=== PATIENT | male | born 1945 | race African-American/Black ===

== ENCOUNTER 2017-04-23 05:56 | Inpatient (IN) ==
--- NOTE | 2017-04-16 10:49 | EKG Report ---
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
[2017-04-23] MEDS ORDERED: SODIUM PHOSPHATE ENEMA 133 ML BOTTLE RECTAL ONE ×2 (06:00→06:05)
[2017-04-23] MEDS ORDERED: cefTRIAXone 1,000 MG in SODIUM CHLORIDE 0.9% 100 ML IV ONE (06:00)
[2017-04-23] MEDS ORDERED: ALVIMOPAN 12 MG CAPSULE PO ONE (06:00)
[2017-04-23] MEDS ORDERED: ALVIMOPAN 12 MG CAPSULE ONE (06:04)
[2017-04-23] MEDS ORDERED: SODIUM CHLORIDE 0.9% 100 ML IV ONE (06:05)
[2017-04-23] MEDS ORDERED: cefTRIAXone 1,000 MG VIAL ONE (06:05)
[2017-04-23] MEDS ORDERED: FAMOTIDINE 20 MG/2 ML VIAL IV ONE (06:46)
[2017-04-23 06:52] LABS: Calcium 8.8 MG/DL (8.5-10.1); Osmolality,Calculated 292.7 MOS/KG (273-304); Potassium 4.5 MMOL/L (3.5-5.1)
[2017-04-23] MEDS: LACTATED RINGERS 1,000 ML IV SCH (06:59)
[2017-04-23] MEDS ORDERED: DEXAMETHASONE 4 MG/1 ML VIAL ONE (07:10)
[2017-04-23] MEDS: SODIUM CHLORIDE 0.9% 1,000 ML IV SCH ×2 (07:10→10:01)
[2017-04-23] MEDS ORDERED: GLYCOPYRROLATE 0.4 MG/2 ML VIAL ONE (07:10)
[2017-04-23] MEDS ORDERED: PROPOFOL 200 MG/20 ML VIAL IV ONE (07:10)
[2017-04-23] MEDS ORDERED: ONDANSETRON 4 MG/2 ML VIAL ONE ×2 (07:10→12:30)
[2017-04-23] MEDS ORDERED: NEOSTIGMINE 10 MG/10 ML VIAL ONE (07:10)
[2017-04-23] MEDS ORDERED: ROCURONIUM 100 MG/10 ML VIAL IV ONE (07:10)
[2017-04-23] MEDS ORDERED: LIDOCAINE 2% 5 ML VIAL ONE (07:10)
[2017-04-23 08:40] LABS: Apearance,Urine CLEAR (Clear); Bilirubin,Urine Negative (Negative); Blood, Urine Moderate mg/dL (Negative); Glucose,Urine (UA) Negative (Negative); Ketones,Urine Negative (Negative); Mucus,Urine Occasional /LPF (Occasional); Nitrite,Urine Negative (Negative); Protein,Urine Negative; RBC,Urine 8 /HPF (0-4); Sperm,Urine Occasional /HPF (Negative); Urine Color Straw (Yellow); Urine Specific Gravity 1.009 (1.001-1.035); Urine Urobilinogen < 2.0 EU/DL (0.2-1.0); WBC,Urine 2 /HPF (0-6)
[2017-04-23] MEDS ORDERED: LACTULOSE 20 GM/30 ML UDCUP PO PRN (11:57)
[2017-04-23] MEDS ORDERED: ONDANSETRON 4 MG/2 ML VIAL IV PRN ×2 (11:57→12:36)
[2017-04-23] MEDS ORDERED: diphenhydrAMINE 50 MG/1 ML VIAL IV PRN (11:57)
[2017-04-23] MEDS ORDERED: HYDROmorphone PCA 30 MG/30 ML SYRINGE IV SCH (12:00)
--- NOTE | 2017-04-23 12:10 | Operative Note ---
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 Procedure was explained at length and in detail. Risks, complications, outcomes, sequelae, prognosis and alternative therapy was discussed. Patient understood this and agreed to proceed. Patient brought to the operative suite placed table on in the supine position on the securing pad. He is then given a general endotracheal anesthetic and then secured to the table and placed in low lithotomy position. He is then prepared and draped in usual sterile manner. Formal timeout was performed. Patient placed in Trendelenburg position. Incision is created over the umbilicus and this was then bluntly dissected down the fascia. Towel clips were used to elevate the abdominal wall and a Veress needle was used to castellon the abdominal wall and pneumoperitoneum was obtained. Placement was confirmed with the to click and saline drop test. Various needle was removed an 8 mm trocar was placed. Camera was inserted in this. There was some blood splattering on the mesentery and was not sure whether it is from I was fairly certain the Veress needle had not pierced the mesentery. Another port was placed lateral to the camera port at the umbilicus on the left-hand side and the camera was inserted and there is a lot of adipose tissue in the anterior abdominal wall that had some serum the drip down along with low blood. I think that is where this came from. A grasping forcep was placed in the bowel was manipulated and there is no bowel injury. The #3 arm right of the camera in the fourth arm right to #3 were then placed. These are done under direct vision. Assistance port incision was created with the scalpel and dissected down and cautery. Muscle was divided in the mini gel port was placed. 12 mm trocar was placed through this. The robot was then docked. I broke scrub and went to the console. [place] bipolar forceps in the left and monopolar scissors in the right posterior approach was begun. There was a lot of pelvic adipose tissue. This made the dissection difficult because there was a very small cul-de-sac and a lot of adipose tissue. But incision was created anterior cul-de-sac and dissection down the vas deferens seminal vesicles. The vas deferens were then divided and clipped and the seminal vesicles were dissected out of their bed. Window in Denonvilliers's fascia was created. The wrist bladder flap was then created in usual manner. We attempted nerve sparing but due the amount of scarring from a previous TUR this was not done. Prostate was ultimately dissected out in the knuckles were hemoclipped and the prostate was then removed. No dissection was done on both sides. The obturator nerve was identified kept in view at all times not injured. Urethrovesical anastomosis performed the usual manner. A new 22 Maced[place] Rodas was inserted and irrigated and this is a watertight anastomosis. Pneumoperitoneum was dropped there is no significant bleeding. I re-scrubbed and came back to the surgical field. The ports were removed and the main port was removed. Specimen which contain the prostate and seminal vesicles and the specimen bag was then pulled out through this wound. This was closed at the fascia level with a running 0 Monocryl. All wounds were irrigated and hemostasis checked with cautery and the skin was closed skin clips. Sterile dressings were placed on the wound and the catheter secured the upper thigh. Patient tolerates procedure well was sent to the recovery room in stable condition all sponge, needle and instrument counts correct 2. Implants: 22 Macedonian silicone Rodas Anesthesia: GETA Surgeon / Physician: Naman Raymond Estimated blood loss: other (350cc) Specimens: other (Prostate with seminal vesicles, bilateral obturator nodes) Condition: stable Disposition: PACU Results - Labs CBC & BMP: 04/23/17 06:12 Discharge Plan - Discharge Medications No Action Atorvastatin [Lipitor] 20 mg PO DAILY Allopurinol 100 mg PO DAILY Tamsulosin [Flomax] 0.4 mg PO DAILY Sodium Bicarb Tab 650 mg PO DAILY amLODIPine [Norvasc] 10 mg PO DAILY Lisinopril 40 mg PO DAILY Rotigotine [Neupro 4 mg/24 hr Patch] 1 patch Q24H Warfarin [Coumadin] 6 mg PO DAILY@1800 Omeprazole [Prilosec] 20 mg PO DAILY - Follow Up or Referral - Forms/Instructions
[2017-04-23] MEDS ORDERED: SODIUM CHLORIDE 0.9% 2,000 ML IV ONE (12:21)
[2017-04-23] MEDS ORDERED: MIDAZOLAM 2 MG/2 ML VIAL ONE (12:21)
[2017-04-23] MEDS ORDERED: SEVOFLURANE 1 UNIT/15 MINUTE INH ONE (12:21)
[2017-04-23] MEDS ORDERED: fentaNYL 100 MCG/2 ML VIAL ONE (12:21)
[2017-04-23] MEDS ORDERED: ACETAMINOPHEN 1,000 MG/100 ML VIAL IV ONE (12:23)
[2017-04-23] MEDS ORDERED: HYDROmorphone 2 MG/1 ML VIAL ONE (12:30)
[2017-04-23] MEDS ORDERED: LISINOPRIL 20 MG TABLET PO SCH (12:30)
[2017-04-23] MEDS: HYDROmorphone 2 MG/1 ML VIAL IV PRN ×4 (12:35→12:50)
[2017-04-23] MEDS ORDERED: HYDROmorphone PCA 30 MG/30 ML SYRINGE IV ONE (12:41)
[2017-04-23] MEDS: DEXTROSE 5% NACL 0.45% 1,000 ML IV SCH (15:10)
--- NOTE | 2017-04-23 16:25 | Urology Progress Note ---
Urology - PN: Subj Interval history: Postoperative check. Patient is awake and alert but a little sleepy. Urine is slightly bloody not uncommon. Abdomen is soft with incisional tenderness. Vital signs are stable. Patient is stable. Exam - Constitutional Vitals: Period Temp Pulse Resp BP Sys/Mulligan Pulse Ox Last 24 Hr 97.2 F-98.3 F 69-111 16-24 94-181/69-116 96-100 Results - Labs CBC & BMP: 04/23/17 06:12
[2017-04-23] MEDS: SOLIFENACIN 5 MG TABLET PO SCH (17:52)
[2017-04-23] MEDS: ALBUTEROL/IPRATROPIUM 3 ML NEB RESP TX SCH ×2 (19:20→23:42)
[2017-04-23] MEDS: ALVIMOPAN 12 MG CAPSULE PO SCH (20:52)
[2017-04-23] MEDS ORDERED: NEUPRO TRANSDERM SCH (21:00)
[2017-04-24] MEDS: DEXTROSE 5% NACL 0.45% 1,000 ML IV SCH ×3 (01:18→20:11)
[2017-04-24] MEDS: ALBUTEROL/IPRATROPIUM 3 ML NEB RESP TX SCH ×6 (02:55→23:41)
[2017-04-24] MEDS: LACTATED RINGERS 1,000 ML IV SCH (06:04)
[2017-04-24 06:26] LABS: Basophils % 0.1 % (0.0-0.8); Hematocrit 34.5 VOL% (42.0-52.0); Hemoglobin 11.4 GM/DL (14.0-18.0); Immature Granulocytes % 0.5 %; Immature Granulocytes Absolute 0.05 #; Lymphocytes # 1.1 10*3/uL (1.4-4.0); Lymphocytes % 10.3 % (21.2-54.2); Mean Corpuscular Hemoglobin 31 PG (27-34); Mean Corpuscular Volume 93.2 FL (87-102); Mean Platelet Volume 10.3 FL (9.6-12.0); Monocytes # 0.8 10*3/uL (0.11-0.8); Neutrophils # 8.5 10*3/uL (1.4-7.4); Neutrophils % 81.1 % (38.7-73.9); Platelet Count 134 T/CUMM (130-400); Red Cell Distribution Width 14.5 % (9.3-17.3); White Blood Count 10.4 T/CUMM (4-12)
[2017-04-24 07:00] LABS: Calcium 7.6 MG/DL (8.5-10.1); Osmolality,Calculated 292.8 MOS/KG (273-304); Potassium 4.8 MMOL/L (3.5-5.1)
--- NOTE | 2017-04-24 07:10 | Anesthesia Post-Op ---
Anesthesia Post OP - Post Ansesthetic Evaluation Patient seen in post op: Yes Resp: within normal limits CV: within normal limits Mental: within normal limits Temp: within normal limits Drfe-Rt-Cjayaukgn: within normal limits Nausea and Vomiting: within normal limits Pain: within normal limits
--- NOTE | 2017-04-24 08:25 | Pulmonology Progress Note ---
Pulmonary - PN: Subj Interval history: The patient is a 71-year-old black man that has prostate cancer. He came in for radical prostatectomy. He has a history of hypertension and previous pulmonary emboli. He had been on Coumadin. He has been doing well without any shortness of breath or chest pain. Yesterday afternoon he came out of surgery and was doing fairly well. He was very sleepy and dropped his O2 saturation easily but this responded to oxygen. He denies any chest pain or shortness of breath. He says he is sore today but otherwise doing okay. He did sit up a little yesterday and is taking in some liquids. Overall he is feeling well. Exam (Progress Note) - Constitutional Vitals: Period Temp Pulse Resp BP Sys/Mulligan Pulse Ox Last 24 Hr 97.2 F-98.0 F 57-111 16-24 94-181/68-116 95-100 General appearance: normal weight, no acute distress - Head Head exam: Present: normal inspection, normocephalic - Eye Eye exam: Present: EOMI. Absent: scleral icterus Pupils: Present: SUNG - ENT ENT exam: Present: normal exam - Neck Neck exam: Present: normal inspection. Absent: lymphadenopathy, thyromegaly - Respiratory Respiratory exam: Present: clear to auscultation bilaterally - Cardiovascular Cardiovascular exam: Present: regular rate and rhythm. Absent: gallop, systolic murmur - GI/Abdominal GI/Abdominal exam: Present: hypoactive bowel sounds, tenderness (He has minimal tenderness in the lower abdomen.), soft. Absent: distended - Extremities Exam Extremities exam: Absent: calf tenderness, edema - Neurological Exam Neurological exam: Present: alert, oriented X3, CN II-XII intact. Absent: motor sensory deficit - Psychiatric Psychiatric exam: Present: normal affect - Skin Skin exam: Present: warm, dry Results - Labs CBC & BMP: 04/24/17 05:58 04/24/17 05:58 Assessment and Plan (1) Prostate cancer Status: Acute Assessment and plan: The patient has prostate cancer and comes in for radical prostatectomy. He is doing reasonably well at present. Current Visit: Yes (2) Status post prostatectomy Status: Acute Assessment and plan: He is a little sore today after surgery but is doing well otherwise. Current Visit: Yes (3) Chronic renal insufficiency, stage III (moderate) Status: Acute Assessment and plan: His creatinine is 3.8. Current Visit: Yes (4) Hypertension Status: Acute Assessment and plan: His blood pressure stable at present. Current Visit: Yes (5) History of pulmonary embolism Status: Acute Assessment and plan: The patient has been on Coumadin for pulmonary emboli. He is stable at present and will continue with mechanical devices for DVT prophylaxis. He will start his Coumadin when he is over the surgery. Current Visit: Yes (6) Intention tremor Status: Acute Assessment and plan: The patient does have a significant tremor with his hands. Current Visit: Yes
[2017-04-24] MEDS ORDERED: MEPERIDINE 50 MG/1 ML VIAL IM PRN (08:58)
--- NOTE | 2017-04-24 09:00 | Urology Progress Note ---
Urology - PN: Subj Interval history: Postop day 1 radical prostatectomy. Patient's urine is cleared up. He is tolerating some light food. Abdomen is soft but incisional tender this is still evident. His blood work reveals an H&H that is 12 and 35. Creatinine is 3.8 which is stable from preop. He does have chronic renal insufficiency. It is still a little too early to start Coumadin. He needs to get up and ambulate twice a day. We will continue the SCDs. We will stop his PHARM[facility] SPECIALIST and place him on oral medicines. Pathology report is pending. Exam - Constitutional Vitals: Period Temp Pulse Resp BP Sys/Mulligan Pulse Ox Last 24 Hr 97.2 F-98.0 F 57-111 16-24 94-181/68-116 20-100 Results - Labs CBC & BMP: 04/24/17 05:58 04/24/17 05:58
[2017-04-24] MEDS ORDERED: oxyCODONE/ACETAMINOPHEN 5-325 MG TABLET PO PRN (09:01)
[2017-04-24] MEDS: SOLIFENACIN 5 MG TABLET PO SCH (09:17)
[2017-04-24] MEDS: PANTOPRAZOLE 40 MG TABLET PO SCH (09:18)
[2017-04-24] MEDS: ALLOPURINOL 100 MG TABLET PO SCH (09:18)
[2017-04-24] MEDS: amLODIPine 10 MG TABLET PO SCH (09:18)
[2017-04-24] MEDS: LISINOPRIL 20 MG TABLET PO SCH (09:18)
[2017-04-24] MEDS: ALVIMOPAN 12 MG CAPSULE PO SCH ×2 (09:18→20:09)
[2017-04-24] MEDS: SODIUM BICARBONATE 650 MG TABLET PO SCH (09:19)
[2017-04-24] MEDS: ATORVASTATIN 40 MG TABLET PO SCH (09:19)
[2017-04-24] MEDS: oxyCODONE/ACETAMINOPHEN 5-325 MG TABLET PO PRN ×2 (14:26→22:14)
[2017-04-25] MEDS: ALBUTEROL/IPRATROPIUM 3 ML NEB RESP TX SCH ×4 (03:09→14:21)
[2017-04-25] MEDS: DEXTROSE 5% NACL 0.45% 1,000 ML IV SCH (03:24)
[2017-04-25] MEDS: LACTATED RINGERS 1,000 ML IV SCH (06:05)
[2017-04-25] MEDS: ATORVASTATIN 40 MG TABLET PO SCH (09:08)
[2017-04-25] MEDS: ALVIMOPAN 12 MG CAPSULE PO SCH (09:08)
[2017-04-25] MEDS: amLODIPine 10 MG TABLET PO SCH (09:09)
[2017-04-25] MEDS: PANTOPRAZOLE 40 MG TABLET PO SCH (09:09)
[2017-04-25] MEDS: LISINOPRIL 20 MG TABLET PO SCH (09:09)
[2017-04-25] MEDS: SOLIFENACIN 5 MG TABLET PO SCH (09:09)
[2017-04-25] MEDS: ALLOPURINOL 100 MG TABLET PO SCH (09:09)
[2017-04-25] MEDS: SODIUM BICARBONATE 650 MG TABLET PO SCH (09:09)
--- NOTE | 2017-04-25 09:15 | Pulmonology Progress Note ---
Pulmonary - PN: Subj Interval history: The patient is a 71-year-old black man that has prostate cancer. He came in for radical prostatectomy. He has a history of hypertension and previous pulmonary emboli. He had been on Coumadin. He has been doing well without any shortness of breath or chest pain. He is sitting up and moving around now and says that he feels better. He still has some abdominal soreness and no bowel movement yet. His urine is clearing nicely. He is not having any trouble breathing. He does have a severe tremor. Exam (Progress Note) - Constitutional Vitals: Period Temp Pulse Resp BP Sys/Mulligan Pulse Ox Last 24 Hr 97.7 F-99.6 F 68-87 18-20 107-146/72-92 93-99 Exam: General appearance: normal weight, no acute distress, he is sitting up and looks comfortable. - Head Head exam: Present: normal inspection, normocephalic - Eye Eye exam: Present: EOMI. Absent: scleral icterus Pupils: Present: SUNG - ENT ENT exam: Present: normal exam - Neck Neck exam: Present: normal inspection. Absent: lymphadenopathy, thyromegaly - Respiratory Respiratory exam: Present: clear to auscultation bilaterally. He has good breath sounds bilaterally. - Cardiovascular Cardiovascular exam: Present: regular rate and rhythm. Absent: gallop, systolic murmur - GI/Abdominal GI/Abdominal exam: Present: hypoactive bowel sounds, tenderness (He has minimal tenderness in the lower abdomen.), soft. Absent: distended - Extremities Exam Extremities exam: Absent: calf tenderness, edema - Neurological Exam Neurological exam: Present: alert, oriented X3, CN II-XII intact. Absent: motor sensory deficit. He does have a severe tremor. - Psychiatric Psychiatric exam: Present: normal affect - Skin Skin exam: Present: warm, dry Results - Labs CBC & BMP: 04/24/17 05:58 04/24/17 05:58 Assessment and Plan (1) Prostate cancer Status: Acute Assessment and plan: The patient has prostate cancer and comes in for radical prostatectomy. He is stable postop. Current Visit: Yes (2) Status post prostatectomy Status: Acute Assessment and plan: He is a little sore today after surgery but is doing well otherwise. He has not had a bowel movement yet but he is taking some laxatives. His urine is clearing fairly well. Current Visit: Yes (3) Chronic renal insufficiency, stage III (moderate) Status: Acute Assessment and plan: His creatinine is 3.8. Current Visit: Yes (4) Hypertension Status: Acute Assessment and plan: His blood pressure stable at present. Current Visit: Yes (5) History of pulmonary embolism Status: Acute Assessment and plan: The patient has been on Coumadin for pulmonary emboli. He is stable at present and will continue with mechanical devices for DVT prophylaxis. He will start his Coumadin when he is over the surgery. Current Visit: Yes (6) Intention tremor Status: Acute Assessment and plan: The patient does have a significant tremor with his hands. Current Visit: Yes
--- NOTE | 2017-04-25 11:28 | Pathology Report from [facility] ---
[facility] [place] ACCESSION # : [id number] PATIENT NAME : Siddharth Shore ORDERING DR : SEBAS BERMUDEZ MD CLINICAL HX: Prostate CA POST-OP DX: Same SPECIMEN INFO: #1 RT obturator node #2 LT obturator node #3 Prostate GROSS DESCRIPTION: Received fresh in three parts labeled:#1 SIDDHARTH SHORE & R OBT NODE consists of two yellow lópez fatty tissue fragments measuring collectively 3.5 x 1.5 cm, sectioned and submitted in cassette #1.#2 SIDDHARTH SHORE & L OBT NODE is a yellow fatty firm tissue fragment measuring 1.4 x 1.1 cm, sectioned and submitted in cassette #2.#3 SIDDHARTH SHORE & #3 PROSTATE is a 61 gm prostate with seminal vesicle and vas deferens. The prostate measures approx. 5.5 x 6.2 x up to 4.5 cm. The serosa is red lópez and shaggy. There is a focally nodular appearance on the right side. The right half is inked black and the left half blue. The cut surfaces are pink lópez and focally nodular with a few cystic areas present. Sections submitted 3A-Apical margin, 3B-Base margin, 3C-Seminal vesicle and vas deferens margin, 3D-3J-RT prostate apex to base, 3K-3N-LT prostate apex to base. DIAGNOSIS FOR SIDDHARTH SHORE: PROSTATE, RADICAL PROSTATECTOMY (5.5 x 6.2 x 4.5 cm, 61gm): TYPE: Acinar adenocarcinoma. SITE: Bilateral (both lobes). GRADE: Primary Pattern Grade 3; Secondary Pattern Grade 4; Total Trego Score 7. MINI GRADE GROUP: 2(3+4=7) PERCENTAGE OF PATTERN 4 in MINI SCORE 3+4=7 CANCER: (15%) TUMOR QUANTITATION: Percentage of prostate involved by tumor 25; Dominant nodule = 10 mm. MARGINS: Margins uninvolved by invasive carcinoma EXTRAPROSTATIC EXTENSION: Not Identified SEMINAL VESICLE INVASION: Not identified URINARY BLADDER NECK INVASION: Not identified TREATMENT EFFECT: No known presurgical therapy. LYMPH-VASCULAR INVASION: Not identified. PERINEURAL INVASION: Present. LYMPH NODES: Number examined = 2; Number involved = 0. AJCC PATHOLOGIC STAGE: IIB ([id number]) COLLECTED DATE: 04/23/2017 [facility] REPORT DATE: 04/25/2017 ELECTRONICALLY SIGNED BY: Aguilar Woodward III, M.D. 04/25/2017 - 8:38:18 MTDUrszula
--- NOTE | 2017-04-25 12:30 | Discharge Summary ---
Hospital Course - Hospital Course Hospital Course: Status post robotic prostatectomy. Path is pending. He is doing well. His blood work is all look good urine is cleared up he is yet to have a bowel movement but we can continue list cathartics at home. His abdomen is soft. His wounds are healing well. We will discharge him to follow-up in the office in 1 week to have his catheter out and see me the following week. Activity level is minimal. Continues home medicines. We will restart his Coumadin on . Dr. Hernandez was consulted and was managing his medical issues. - Time spent with patient Time with patient DS: Greater than 30 minutes Discharge Plan - Discharge Data Disposition: Disch To Home/Self Care Condition at Discharge: Stable Discharge Diet: regular diet Activity: no lifting, other (Walking on flat ground is encouraged) Hygiene: no restrictions Weight Bearing at Discharge: full weight bearing Driving: not until seen by doctor Contact your physician if you experience:: fever over 101, Redness or swelling, Bleeding, pain uncontrolled by pain medications - Discharge Medications No Action Atorvastatin [Lipitor] 20 mg PO DAILY Allopurinol 100 mg PO DAILY Tamsulosin [Flomax] 0.4 mg PO DAILY Sodium Bicarb Tab 650 mg PO DAILY amLODIPine [Norvasc] 10 mg PO DAILY Lisinopril 40 mg PO DAILY Rotigotine [Neupro 4 mg/24 hr Patch] 1 patch Q24H Warfarin [Coumadin] 6 mg PO DAILY@1800 Omeprazole [Prilosec] 20 mg PO DAILY - Follow Up or Referral - Forms/Instructions Exam - Constitutional Vitals: Period Temp Pulse Resp BP Sys/Mulligan Pulse Ox Last 24 Hr 97.7 F-99.6 F 76-87 18-20 107-146/72-92 93-99 DS: Provider Date of admission: 04/23/17 11:57 Primary care physician: Toribio Rene Attending physician on admission: Naman Raymond MD Consults: 04/23/17 12:01 Consult to Physician [CONS] Routine Comment: Known to you Consulting Provider: Paul Hernandez Consult to Specialist Group: Urology When should Consulting Provider be notified: Now Person Notified: aware Date Notified: 04/23/17 Time Notified: 16:59 Consult Notification Comment: left message at 1553 Discharging clinician: Naman Raymond MD
[2017-04-25 15:28] VITALS: BP 132/86
== END 2017-04-25 15:10 | disposition home or self-care (01) | DRG 708 ==
LOC: N.OR 05:56 → N.SDSINP 05:57 → N.5E 10:59
PROVIDERS: ADMIT Urology; ATTEND Urology